=== PATIENT | female | born 1980 | race Two or more races ===

== ENCOUNTER 2016-12-09 20:10 | Emergency (ER) | payer OTHER ==
[~2016-12-09] VITALS: Ht 157.5 cm; Wt 83.9 kg
[2016-12-09 20:12] VITALS: BP 134/86
[2016-12-09] MEDS ORDERED: KETOROLAC 30 MG/1 ML IM ONE (20:30)
[2016-12-09] MEDS ORDERED: DIAZEPAM 5 MG TABLET PO ONE (20:30)
[2016-12-09] MEDS ORDERED: KETOROLAC 30 MG/1 ML ONE (22:07)
[2016-12-09] MEDS ORDERED: LEVO50TA5 PO (22:11)
[2016-12-09] MEDS ORDERED: MONT4GRA PO (22:11)
[2016-12-09] MEDS ORDERED: BUPR300T49 PO (22:11)
== END 2016-12-09 22:25 | disposition home or self-care (01) ==
LOC: ED 22:19
DX: S16.1XXA Strain of muscle, fascia and tendon at neck level, initial encounter (principal); M19.90 Unspecified osteoarthritis, unspecified site; V89.2XXA Person injured in unspecified motor-vehicle accident, traffic, initial encounter; Y93.89 Activity, other specified; Y99.8 Other external cause status; Y92.488 Other paved roadways as the place of occurrence of the external cause
CPT/HCPCS: 72020; 72050; 72110; 96372; 99284; J1885